=== PATIENT | female | born 1940 | race Caucasian/White ===

== ENCOUNTER 2018-01-14 12:08 | Inpatient (IN) | payer MEDICARE, OTHER ==
[~2018-01-14] VITALS: Ht 160 cm; Wt 92.1 kg
[2018-01-14 12:10] VITALS: BP_SYST 142
[2018-01-14] MEDS ORDERED: ONDANSETRON 4 MG ODT TAB PO ONE (12:30)
[2018-01-14 12:37] LABS: BILIRUBIN,URINE NEGATIVE (NEGATIVE); BLOOD, URINE NEGATIVE (NEGATIVE); COLOR,URINE YELLOW (YELLOW); GLUCOSE,URINE NEGATIVE (NEGATIVE); KETONES,URINE NEGATIVE (NEGATIVE); LEUKOCYTE ESTERASE ,URINE 3+ (NEGATIVE); NITRITE, URINE NEGATIVE (NEGATIVE); PH,URINE 7.5 (5.0-8.0); PROTEIN URINE NEGATIVE (NEGATIVE); UROBILINOGEN,URINE 0.2 (0.2-1.0)
[2018-01-14 12:40] LABS: CLARITY/URINE HAZY (CLEAR)
[2018-01-14 12:49] LABS: BACTERIA,URINE FEW /HPF (None Seen); MUCUS,URINE None Seen /LPF (None Seen); RBC,URINE 0-3 /HPF (0-3)
[2018-01-14 12:55] LABS: BASOPHILS % (AUTO) 0.6 % (0.0-2.0); EOSINOPHILS # (AUTO) 0.1 K/uL (0.0-0.4); EOSINOPHILS % (AUTO) 2.3 % (0.0-4.0); HEMOGLOBIN 12.5 g/dL (12.0-16.0); LYMPHOCYTES # (AUTO) 0.8 K/uL (1.0-5.5); LYMPHOCYTES % (AUTO) 17.2 % (20.5-51.5); MEAN CORPUSCULAR HEMOGLOBIN 28 pg (27-31); MEAN CORPUSCULAR HGB CONC 33 % (32-36); MEAN CORPUSCULAR VOLUME 87 fL (79.0-98.0); MONOCYTES # (AUTO) 0.4 K/uL (0.0-1.0); MONOCYTES % (AUTO) 8.7 % (1.7-9.3); NEUTROPHILS # (AUTO) 3.3 K/uL (1.8-7.7); NEUTROPHILS % (AUTO) 71.2 % (40.0-70.0); PLATELET COUNT (AUTO) 239 K/uL (130-430); RED BLOOD CELL COUNT(AUTO) 4.39 MIL/uL (4.2-6.2); RED CELL DISTRIBUTION WIDTH 14.4 % (9.0-15.0); WHITE BLOOD COUNT (AUTO) 4.6 K/uL (4.8-10.8)
[2018-01-14 13:03] LABS: ANION GAP 5 (5-15); CALCIUM 10.6 mg/dL (8.4-11.0); CHLORIDE 105 mmol/L (98-107); CREATININE 0.87 mg/dL (0.55-1.30); GLUCOSE 117 mg/dL (70-99); POTASSIUM 4.4 mmol/L (3.5-5.1); SODIUM SERUM 140 mmol/L (136-145); UREA NITROGEN, BLOOD 27 mg/dL (8-21)
[2018-01-14 13:08] LABS: ALANINE AMINOTRANSFERASE 21 U/L (12-78); ALBUMIN 3.7 g/dL (3.4-4.8); ASPARTATE AMINOTRANSFERASE 17 U/L (10-37); PROTHROMBIN TIME 10.3 SECS (9.5-12.5); TOTAL BILIRUBIN 0.5 mg/dL (0.0-1.0)
[2018-01-14] MEDS ORDERED: GLU500 PO (15:16)
[2018-01-14] MEDS ORDERED: BACL10TA PO (15:16)
[2018-01-14] MEDS ORDERED: OMEG-143 PO (15:16)
[2018-01-14] MEDS ORDERED: LOSA100T15 PO (15:16)
[2018-01-14] MEDS ORDERED: TRIAMCINOLONE TP (15:16)
[2018-01-14] MEDS ORDERED: MAGN400T10 PO (15:16)
[2018-01-14] MEDS ORDERED: MELA3TAB PO (15:16)
[2018-01-14] MEDS ORDERED: ASPI-1153 PO (15:16)
[2018-01-14] MEDS ORDERED: MULT-1089 PO (15:16)
[2018-01-14] MEDS ORDERED: GLUC500T13 PO (15:16)
[2018-01-14] MEDS ORDERED: CINN1CAP2 PO (15:16)
[2018-01-14] MEDS ORDERED: NOR10 PO (15:16)
[2018-01-14] MEDS ORDERED: CALC-995 PO (15:16)
[2018-01-14] MEDS ORDERED: HYDR-3110 PO (15:16)
[2018-01-14] MEDS ORDERED: OMEP-268 PO (15:16)
[2018-01-14] MEDS ORDERED: ALBU8.5H8 INH (15:16)
[2018-01-14] MEDS ORDERED: COR6.25 PO (15:16)
[2018-01-14] MEDS ORDERED: ALPR0.25 PO (15:16)
[2018-01-14] MEDS ORDERED: PRAV20TA PO (15:16)
[2018-01-14] MEDS ORDERED: GABA-531 PO (15:16)
[2018-01-14] MEDS ORDERED: POTA2TAB18 PO (15:16)
[2018-01-14] MEDS ORDERED: HYDR-4038 PO (15:16)
[2018-01-14 16:32] VITALS: BP_SYST 123
[2018-01-14 19:00] VITALS: BP_SYST 115
[2018-01-14 20:00] VITALS: BP_SYST 115
[2018-01-14] MEDS ORDERED: ONDANSETRON HCL 4 MG/2 ML VIAL IVP PRN (23:00)
[2018-01-14] MEDS ORDERED: POLYETHYLENE GLYCOL 3350, 17 GM/ POWD.PACK PO ONE (23:15)
[2018-01-14] MEDS: ZOLPIDEM TARTRATE 5 MG TABLET PO PRN (23:29)
[2018-01-14] MEDS: HYDROcodone/ACETAMIN 5-325 MG TAB (NORCO/ VICODIN) PO PRN (23:31)
[2018-01-15] MEDS ORDERED: INSULIN REGULAR, HUMAN 100 UNITS/ML, 10 ML VIAL (novoLIN R) SUBCUT PRN
[2018-01-15 00:10] VITALS: BP_SYST 118
[2018-01-15] MEDS: HYDROcodone/ACETAMIN 5-325 MG TAB (NORCO/ VICODIN) PO PRN ×3 (05:19→23:18)
[2018-01-15 08:00] VITALS: BP_SYST 112
[2018-01-15] MEDS ORDERED: ALBUTEROL MDI INHALATION 8 GM INH INH SCH (08:00)
[2018-01-15] MEDS ORDERED: ALBUTEROL SULFATE 0.083% 2.5 MG/3 ML VIAL.NEB INH PRN (08:30)
[2018-01-15] MEDS: ALPRAZolam 0.25 MG TABLET PO SCH (09:00)
[2018-01-15] MEDS: ASPIRIN 81 MG TAB.CHEW PO SCH (09:32)
[2018-01-15] MEDS: GABAPENTIN 300 MG CAPSULE PO SCH ×4 (09:32→20:34)
[2018-01-15] MEDS: MAGNESIUM OXIDE 400 MG TABLET PO SCH (09:32)
[2018-01-15] MEDS: hydrALAZINE HCL 25 MG TABLET PO SCH ×2 (09:32→20:34)
[2018-01-15] MEDS: CARVEDILOL 6.25 MG TABLET (COREG) PO SCH ×2 (09:33→20:33)
[2018-01-15] MEDS: amLODIPine BESYLATE 10 MG TABLET PO SCH (09:33)
[2018-01-15] MEDS: CEPHALEXIN 250 MG CAPSULE PO SCH ×3 (11:11→23:18)
[2018-01-15 13:53] VITALS: BP_SYST 120
[2018-01-15 18:03] VITALS: BP_SYST 118
[2018-01-15] MEDS: POLYETHYLENE GLYCOL 3350, 17 GM/ POWD.PACK PO SCH (20:31)
[2018-01-15] MEDS: ATORVASTATIN 10 MG TABLET PO SCH (20:32)
[2018-01-15] MEDS: BACLOFEN 10 MG TABLET PO SCH (20:32)
[2018-01-15] MEDS: ZOLPIDEM TARTRATE 5 MG TABLET PO PRN (22:05)
[2018-01-15 22:59] VITALS: BP_SYST 121
[2018-01-16] MEDS: CEPHALEXIN 250 MG CAPSULE PO SCH ×4 (05:57→23:11)
[2018-01-16 06:08] LABS: BASOPHILS % (AUTO) 0.4 % (0.0-2.0); EOSINOPHILS # (AUTO) 0.1 K/uL (0.0-0.4); EOSINOPHILS % (AUTO) 3.4 % (0.0-4.0); HEMATOCRIT 35.8 % (36-48); HEMOGLOBIN 11.8 g/dL (12.0-16.0); LYMPHOCYTES # (AUTO) 0.8 K/uL (1.0-5.5); LYMPHOCYTES % (AUTO) 21.9 % (20.5-51.5); MEAN CORPUSCULAR HEMOGLOBIN 29 pg (27-31); MEAN CORPUSCULAR HGB CONC 33 % (32-36); MEAN CORPUSCULAR VOLUME 86 fL (79.0-98.0); MONOCYTES # (AUTO) 0.4 K/uL (0.0-1.0); MONOCYTES % (AUTO) 9.7 % (1.7-9.3); NEUTROPHILS # (AUTO) 2.4 K/uL (1.8-7.7); NEUTROPHILS % (AUTO) 64.6 % (40.0-70.0); PLATELET COUNT (AUTO) 206 K/uL (130-430); RED BLOOD CELL COUNT(AUTO) 4.15 MIL/uL (4.2-6.2); RED CELL DISTRIBUTION WIDTH 14.1 % (9.0-15.0)
[2018-01-16 06:12] LABS: ALANINE AMINOTRANSFERASE 18 U/L (12-78); ALBUMIN 3.3 g/dL (3.4-4.8); ANION GAP 7 (5-15); ASPARTATE AMINOTRANSFERASE 14 U/L (10-37); CALCIUM 9.7 mg/dL (8.4-11.0); CHLORIDE 103 mmol/L (98-107); CREATININE 0.86 mg/dL (0.55-1.30); GLUCOSE 110 mg/dL (70-99); SODIUM SERUM 140 mmol/L (136-145); TOTAL BILIRUBIN 0.3 mg/dL (0.0-1.0); UREA NITROGEN, BLOOD 21 mg/dL (8-21)
[2018-01-16 07:22] LABS: WHITE BLOOD COUNT (AUTO) 3.7 K/uL (4.8-10.8)
[2018-01-16 08:00] VITALS: BP_SYST 148
[2018-01-16] MEDS: HYDROcodone/ACETAMIN 5-325 MG TAB (NORCO/ VICODIN) PO PRN ×3 (08:15→23:11)
[2018-01-16] MEDS: GABAPENTIN 300 MG CAPSULE PO SCH ×4 (09:07→20:52)
[2018-01-16] MEDS: ALPRAZolam 0.25 MG TABLET PO SCH (09:07)
[2018-01-16] MEDS: ASPIRIN 81 MG TAB.CHEW PO SCH (09:07)
[2018-01-16] MEDS: amLODIPine BESYLATE 10 MG TABLET PO SCH (09:08)
[2018-01-16] MEDS: hydrALAZINE HCL 25 MG TABLET PO SCH ×2 (09:08→20:53)
[2018-01-16] MEDS: MAGNESIUM OXIDE 400 MG TABLET PO SCH (09:08)
[2018-01-16] MEDS: CARVEDILOL 6.25 MG TABLET (COREG) PO SCH ×2 (09:09→20:52)
[2018-01-16 12:35] VITALS: BP_SYST 117
[2018-01-16 16:47] VITALS: BP_SYST 128
[2018-01-16] MEDS: BACLOFEN 10 MG TABLET PO SCH (20:52)
[2018-01-16] MEDS: POLYETHYLENE GLYCOL 3350, 17 GM/ POWD.PACK PO SCH (20:54)
[2018-01-16] MEDS: ATORVASTATIN 10 MG TABLET PO SCH (20:54)
[2018-01-16] MEDS: ZOLPIDEM TARTRATE 5 MG TABLET PO PRN (22:11)
[2018-01-17 01:16] VITALS: BP_SYST 131
[2018-01-17] MEDS: CEPHALEXIN 250 MG CAPSULE PO SCH (05:30)
[2018-01-17] MEDS: HYDROcodone/ACETAMIN 5-325 MG TAB (NORCO/ VICODIN) PO PRN (06:46)
[2018-01-17 08:00] VITALS: BP_SYST 137
[2018-01-17] MEDS: MAGNESIUM OXIDE 400 MG TABLET PO SCH (09:52)
[2018-01-17] MEDS: ALPRAZolam 0.25 MG TABLET PO SCH (09:52)
[2018-01-17] MEDS: GABAPENTIN 300 MG CAPSULE PO SCH (09:52)
[2018-01-17] MEDS: hydrALAZINE HCL 25 MG TABLET PO SCH (09:52)
[2018-01-17] MEDS: CARVEDILOL 6.25 MG TABLET (COREG) PO SCH (09:53)
[2018-01-17] MEDS: amLODIPine BESYLATE 10 MG TABLET PO SCH (09:54)
[2018-01-17] MEDS: ASPIRIN 81 MG TAB.CHEW PO SCH (09:54)
[2018-01-17] MEDS ORDERED: MAGNESIUM CITRATE 300 ML ORAL SOLUTION PO ONE (10:30)
[2018-01-17 11:27] VITALS: BP_SYST 137
== END 2018-01-17 12:00 | disposition home or self-care (01) | DRG 312 ==
LOC: SED 12:08 → STU 15:54 → OBSVTOIN 01-15 16:14
PROVIDERS: ADMIT Internal Medicine Hospice and Palliative Medicine; ATTEND Internal Medicine Hospice and Palliative Medicine
DX: R55 Syncope and collapse (principal); J44.9 Chronic obstructive pulmonary disease, unspecified; E66.9 Obesity, unspecified; E78.5 Hyperlipidemia, unspecified; E11.9 Type 2 diabetes mellitus without complications; I65.29 Occlusion and stenosis of unspecified carotid artery; M54.5 Low back pain; R42 Dizziness and giddiness; E86.0 Dehydration; I10 Essential (primary) hypertension; Z96.649 Presence of unspecified artificial hip joint; H91.90 Unspecified hearing loss, unspecified ear; Z87.891 Personal history of nicotine dependence; Z68.36 Body mass index [BMI] 36.0-36.9, adult; Z79.899 Other long term (current) drug therapy; Z79.84 Long term (current) use of oral hypoglycemic drugs; Z79.82 Long term (current) use of aspirin
CPT/HCPCS: 36415; 70450-TC; 71045; 72170-TC; 80053; 81000-TC; 82962; 84484; 85025; 85610-TC; 87086; 93005; 93880; 95816; 97110-GP; 97116-GP; 97163; 97530-GP; 99285; G0378; J1815; J2405; Q0162

== ENCOUNTER 2019-12-15 06:34 | Day surgery (SDC) | payer OTHER, SELFPAY ==
[~2019-12-15] VITALS: Ht 160 cm; Wt 98.4 kg
[~2019-12-15 06:34] MED LIST: ALBU8.5H8 INH; ALPR0.25 PO; ASPI-1393 PO; BACL10TA PO; CALC-995 PO; CINN1CAP2 PO; COR6.25 PO; GABA-531 PO; GLUC500T13 PO; HYDR-3110 PO; HYDR-4038 PO; LOSA100T23 PO; MAGN400T10 PO; MELA3TAB41 PO; MULT-1089 PO; NOR10 PO; OMEG-143 PO; OMEP-268 PO; POTA2TAB18 PO; PRAV20TA PO; TRIAMCINOLONE TP
[2019-12-15] MEDS ORDERED: CEFAZOLIN SOD 2 GM in D5W 50 ML IV ONE (07:00)
[2019-12-15] MEDS ORDERED: ALBUTEROL SULFATE 0.083% 2.5 MG/3 ML VIAL.NEB INH ONE ×2 (07:45→08:19)
[2019-12-15] MEDS ORDERED: METOCLOPRAMIDE HCL 10 MG/2 ML VIAL IVP ONE (08:25)
[2019-12-15] MEDS ORDERED: ETOMIDATE 20 MG/ 10 ML VIAL (AMIDATE) IVP ONE (08:25)
[2019-12-15] MEDS ORDERED: ePHEDrine sulfate 50 MG/ML VIAL IVP ONE (08:25)
[2019-12-15] MEDS ORDERED: NS IRRIG SOLN 1000 ML IR ONE (08:25)
[2019-12-15] MEDS ORDERED: ONDANSETRON HCL 4 MG/2 ML VIAL IVP ONE (08:25)
[2019-12-15] MEDS ORDERED: BUPIVACAINE /EPINEPHRINE/PF 0.5% 30 ML VIAL INJ ONE (08:25)
[2019-12-15] MEDS ORDERED: LR 1,000 ML IV.SOLN IV ONE (08:25)
[2019-12-15] MEDS ORDERED: fentaNYL CITRATE/PF 100 MCG/2 ML AMP IVP ONE (08:25)
[2019-12-15] MEDS ORDERED: SEVOFLURANE 15 MIN GAS INH ONE (08:25)
[2019-12-15] MEDS ORDERED: HYDROmorphone 1 MG INJ. 1 MG/ML AMPUL IVP PRN (09:15)
[2019-12-15] MEDS ORDERED: LR 1,000 ML IV SCH (09:15)
[2019-12-15] MEDS ORDERED: ONDANSETRON HCL 4 MG/2 ML VIAL IVP PRN (09:15)
[2019-12-15 10:00] VITALS: BP_SYST 130
== END 2019-12-15 11:20 | disposition home or self-care (01) ==
LOC: SDS 06:34 → SMU 06:34 → SDS 11:20
PROVIDERS: ATTEND Orthopaedic Surgery
DX: G56.03 Carpal tunnel syndrome, bilateral upper limbs (principal); J44.9 Chronic obstructive pulmonary disease, unspecified; E66.01 Morbid (severe) obesity due to excess calories; E11.22 Type 2 diabetes mellitus with diabetic chronic kidney disease; I12.9 Hypertensive chronic kidney disease with stage 1 through stage 4 chronic kidney disease, or unspecified chronic kidney disease; N18.30 Chronic kidney disease, stage 3 unspecified; E11.42 Type 2 diabetes mellitus with diabetic polyneuropathy; E11.51 Type 2 diabetes mellitus with diabetic peripheral angiopathy without gangrene; F32.0 Major depressive disorder, single episode, mild; M19.012 Primary osteoarthritis, left shoulder; M17.11 Unilateral primary osteoarthritis, right knee; Z80.1 Family history of malignant neoplasm of trachea, bronchus and lung; Z79.899 Other long term (current) drug therapy
CPT/HCPCS: 29848; 82962; 94640; J0690; J2405; J2765; J3010; J3490 ×2; J7060; J7120; J7613

== ENCOUNTER 2020-01-12 09:13 | Day surgery (SDC) | payer OTHER ==
[~2020-01-12] VITALS: Ht 160 cm; Wt 98.4 kg
[~2020-01-12 09:13] MED LIST changes: +CEFAZOLIN SOD 2 GM in D5W 50 ML IV ONE
[2020-01-12] MEDS ORDERED: fentaNYL CITRATE/PF 100 MCG/2 ML AMP IVP ONE (13:01)
[2020-01-12] MEDS ORDERED: NS IRRIG SOLN 5000 ML IR ONE (13:01)
[2020-01-12] MEDS ORDERED: DEXAMETHASONE SOD PHOSPHATE 4 MG/ML VIAL IVP ONE (13:01)
[2020-01-12] MEDS ORDERED: ONDANSETRON HCL 4 MG/2 ML VIAL IVP ONE (13:01)
[2020-01-12] MEDS ORDERED: PROPOFOL 200MG/ 20ML VIAL (DIPRIVAN) IV ONE (13:01)
[2020-01-12] MEDS ORDERED: LR 1,000 ML IV.SOLN IV ONE (13:01)
[2020-01-12] MEDS ORDERED: KETOROLAC TROMETHAMINE 30 MG VIAL IVP ONE (13:01)
[2020-01-12] MEDS ORDERED: SEVOFLURANE 15 MIN GAS INH ONE (13:01)
[2020-01-12] MEDS ORDERED: BUPIVACAINE /EPINEPHRINE/PF 0.25% 30 ML VIAL INJ ONE (13:01)
[2020-01-12] MEDS ORDERED: LR 1,000 ML IV SCH (13:30)
[2020-01-12] MEDS ORDERED: HYDROmorphone 1 MG INJ. 1 MG/ML AMPUL IVP PRN (13:30)
[2020-01-12] MEDS ORDERED: ONDANSETRON HCL 4 MG/2 ML VIAL IVP PRN (13:30)
[2020-01-12 14:35] VITALS: BP_SYST 147
== END 2020-01-12 15:45 | disposition home or self-care (01) ==
LOC: SDS 09:13 → SMU 09:13 → SDS 15:45
PROVIDERS: ATTEND Orthopaedic Surgery
DX: G56.01 Carpal tunnel syndrome, right upper limb (principal); I10 Essential (primary) hypertension; E11.9 Type 2 diabetes mellitus without complications; J44.9 Chronic obstructive pulmonary disease, unspecified; E78.5 Hyperlipidemia, unspecified; E66.9 Obesity, unspecified; Z79.899 Other long term (current) drug therapy
CPT/HCPCS: 29848; 82962; J0690; J1100; J1885; J2405; J2704; J3010; J3490; J7060; J7120

== ENCOUNTER 2023-05-31 06:19 | Day surgery (SDC) | payer OTHER ==
[~2023-05-31] VITALS: Ht 160 cm; Wt 73.7 kg
[~2023-05-31 06:19] MED LIST changes: -CEFAZOLIN SOD 2 GM in D5W 50 ML IV ONE; -HYDR-3110 PO; -HYDR-4038 PO; +HYDR-4280 PO; +HYDR25TA86 PO; -LOSA100T23 PO; +LOSA100T24 PO
[2023-05-31] MEDS ORDERED: CEFAZOLIN SOD 2 GM in D5W 50 ML IV ONE (07:00)
[2023-05-31] MEDS ORDERED: LIDOCAINE 1%, 20 ML MDV 20 ML ONE (07:46)
[2023-05-31] MEDS ORDERED: DEXAMETHASONE SOD PHOSPHATE 4 MG/ML VIAL ONE (10:05)
[2023-05-31] MEDS ORDERED: ONDANSETRON HCL 4 MG/2 ML VIAL ONE (10:05)
[2023-05-31] MEDS ORDERED: LR 1,000 ML IV.SOLN IV ONE (10:05)
[2023-05-31] MEDS ORDERED: SEVOFLURANE 15 MIN GAS INH ONE (10:05)
[2023-05-31] MEDS ORDERED: GLYCOPYRROLATE 0.2 MG/ML VIAL ONE (10:05)
[2023-05-31] MEDS ORDERED: PROPOFOL 200MG/ 20ML VIAL (DIPRIVAN) IV ONE (10:05)
[2023-05-31] MEDS ORDERED: fentaNYL CITRATE/PF 100 MCG/2 ML AMP ONE (10:05)
[2023-05-31] MEDS ORDERED: MIDAZOLAM HCL 5 MG/5 ML VIAL ONE (10:05)
[2023-05-31] MEDS ORDERED: BUPIVACAINE /PF 0.25% 30 ML VIAL INJ ONE (10:05)
[2023-05-31] MEDS ORDERED: ISOSULFAN BLUE 5 ML VIAL (LYMPHAZURIN) ONE (10:05)
[2023-05-31] MEDS ORDERED: KETOROLAC TROMETHAMINE 30 MG VIAL ONE (10:05)
[2023-05-31] MEDS ORDERED: METOCLOPRAMIDE HCL 10 MG/2 ML VIAL IVP PRN (11:00)
[2023-05-31] MEDS ORDERED: LR 1,000 ML IV SCH (11:00)
[2023-05-31] MEDS ORDERED: hydrALAZINE HCL 20 MG/ML VIAL IVP PRN (11:00)
[2023-05-31] MEDS ORDERED: HYDROmorphone 1 MG/ML INJ. CARTRIDGE IVP PRN ×2 (11:00)
[2023-05-31] MEDS ORDERED: MEPERIDINE HCL/PF 25 MG/ML DISP.SYRIN IVP PRN (11:00)
[2023-05-31 11:37] VITALS: O2SAT 98
[2023-05-31] MEDS ORDERED: D5/0.45 NS 1,000 ML IV SCH (11:45)
[2023-05-31] MEDS ORDERED: HYDROcodone/ACETAMIN 5-325 MG TAB (NORCO/ VICODIN) PO PRN ×2 (11:45)
[2023-05-31 16:01] VITALS: BP_SYST 141; PULSE 51; RESP 18
== END 2023-05-31 14:25 | disposition home or self-care (01) ==
LOC: SDS 06:19 → SMU 06:20 → SDS 14:25
PROVIDERS: ATTEND Colon & Rectal Surgery
DX: C50.912 Malignant neoplasm of unspecified site of left female breast (principal); I89.8 Other specified noninfective disorders of lymphatic vessels and lymph nodes; I12.9 Hypertensive chronic kidney disease with stage 1 through stage 4 chronic kidney disease, or unspecified chronic kidney disease; E11.22 Type 2 diabetes mellitus with diabetic chronic kidney disease; N18.30 Chronic kidney disease, stage 3 unspecified; E11.42 Type 2 diabetes mellitus with diabetic polyneuropathy; G47.9 Sleep disorder, unspecified; E78.5 Hyperlipidemia, unspecified; F32.0 Major depressive disorder, single episode, mild; Z79.82 Long term (current) use of aspirin; Z79.899 Other long term (current) drug therapy; Z96.1 Presence of intraocular lens; Z96.642 Presence of left artificial hip joint; Z98.890 Other specified postprocedural states; Z87.09 Personal history of other diseases of the respiratory system; Z86.010 Personal history of colon polyps; Z82.49 Family history of ischemic heart disease and other diseases of the circulatory system; Z80.3 Family history of malignant neoplasm of breast; Z80.1 Family history of malignant neoplasm of trachea, bronchus and lung; Z80.0 Family history of malignant neoplasm of digestive organs
CPT/HCPCS: 87081; 38525; 19301; 38900; 76098; 19281; 78195; 82948; 88305; 88307; 88342; A9541; J3490 ×2; J0690; J1100; J1885; J2250; J2405; J2704; J3010; Q9968; J7060; J7120; C1819; J2001